=== PATIENT | male | born 1955 | race Caucasian/White ===

== ENCOUNTER 2018-07-14 05:20 | Inpatient (IN) ==
--- NOTE | 2018-07-14 05:35 | Emergency Department Note ---
Disposition Clinical Impression: Acute retention of urine, Febrile illness, acute, SIRS (systemic inflammatory response syndrome) Disposition: Admitted As Inpatient Condition: Fair Referrals: Triston Montero MD [Primary Care Provider] - Horace Romero MD [Partnered Physician] - () Forms: ED Satisfaction Letter, Work/School Release Male Urogenital HPI - General Chief complaint: ED Urogenital-Male Stated complaint: UNABLE TO URINATE Time Seen by Provider: 07/14/18 05:21 Source: patient, EMS Mode of arrival: EMS Limitations: no limitations Nursing Notes Reviewed: Yes Vital Signs Reviewed: Yes - History of Present Illness HPI Narrative: Patient presents by EMS stating that he "cannot urinate". This had onset about 10 PM he states he has been up all night trying but every 20 minutes to urinate without success. He has a constant urge to urinate as well as increased pain and pressure in the suprapubic region. Denies any other abdominal pain. Denies any episodes like this in the past. He has not had history of prostate trouble or flank pain. He has had some nausea and vomited just prior to arrival that he thinks is from the pain and pressure. He has had a feeling of fevers and chills with no diaphoresis. He has not checked his temperature. He denies any alteration in bowel function and denies diarrhea, constipation, bloody or black stools. Denies cough, chest pain or shortness of breath. He denies a recent change of medications or use of decongestants or other anticholinergic medication. Pt Subjective Complaint: urinary retention Onset (ago): hour(s) (7) Duration: constant, gradually worsening Radiation: abdomen (Suprapubic) Severity: moderate Quality: aching, other (Pressure and fullness) Improves with: none Worsens with: none Reports: urinary retention, fever (Subjective), nausea/vomiting. Denies: discharge, swelling, mass, rash, hematuria, dysuria, incontinence - Related Data Home Medications Medication Instructions Recorded Confirmed Atorvastatin [Lipitor] 20 mg PO HS 11/07/16 07/14/18 Butalbital/Aspirin/Caffeine 1 - 2 tab PO DAILY PRN 11/07/16 07/14/18 [Fiorinal 50-325-40 mg Capsule] Naproxen [Naprosyn] 500 mg PO BID PRN 11/07/16 07/14/18 Allergies Allergy/AdvReac Type Severity Reaction Status Date / Time No Known Allergies Allergy Verified 07/14/18 05:23 All systems ED: reviewed and negative except as stated. Past Medical History - Past Medical History Attestation: Yes The following information was validated with the patient. Source: patient, old records reviewed, nursing notes reviewed Medical history: Reports: hyperlipidemia, other (Headaches) Surgical history: Reports: no surgical history Psychiatric history: Reports: anxiety - Social History Smoking Status: Never smoker Alcohol use: Reports: none Drug use: Reports: none Physical Exam - General Limitations: no limitations General appearance: alert, anxious - Head Head exam: normal inspection - Eye Eye exam: Present: normal appearance, PERRL, EOMI. Absent: conjunctival injection - ENT ENT exam: normal exam, normal oropharynx, mucous membranes moist, normal external ear exam - Neck Neck exam: Present: normal inspection, full ROM, trachea midline - Chest Chest inspection: Present: normal inspection, symmetric chest wall rise. Absent: tenderness - Respiratory Respiratory exam: Present: normal lung sounds bilaterally. Absent: respiratory distress, wheezes, prolonged expiratory phase - Cardiovascular Cardiovascular exam: Present: regular rate, normal rhythm, tachycardia, normal heart sounds - Abdominal Exam Abdominal Exam: Present: soft, normal bowel sounds. Absent: distention, guarding, rebound, rigidity, tenderness at McBurney's Point Abdominal Tenderness: Present: suprapubic, moderate - Extremities Exam Extremities exam: Present: normal inspection, full ROM, normal capillary refill. Absent: tenderness, pedal edema - Expanded Lower Extremity Exam Neurovascular/Tendon exam: Present: normal capillary refill. Absent: pulse deficit, motor deficit, sensory deficit Gait: observed and normal - Back Exam Back exam: Present: normal inspection. Absent: CVA tenderness (R), CVA tenderness (L) - Neurological Exam Neurological exam: Present: alert, oriented X3, normal gait - Psychiatric Psychiatric exam: Present: normal affect, anxious - Skin Skin exam: Present: warm, dry, intact, normal color. Absent: diaphoresis, pallor Course Course Narrative: 0547: The patient's bladder scan indicated greater than 900 mL of urine and a Toro catheter is been placed. This is draining clear yellow urine. The nurses rechecked his temperature and has a temporal of 104. He has started having nausea and vomiting again. I have ordered blood work, cultures and a chest x- ray in addition to IV fluids and Zofran. 0633: Lab has arrived to draw this patient's blood work. 0710: The patient's presentation and evaluation have been discussed with Dr. Case. Patient continues with a tachycardia and a current rate of 112. Blood pressure is 145/85, oxygen saturation 92% and a respiratory rate of 18. States he started to feel improved and he has less nausea. Lactic acid is negative. His white count is not severely elevated. His fever and vomiting I suspect more of a viral syndrome but I do not have an explanation for his acute urinary retention. I do not see evidence for urinary tract infective process. He has received a dose of Rocephin and has continued to receive IV fluids. I believe he will benefit from continued hydration and observation. Verbal orders have been obtained for his observation period Vital Signs Temperature 99.3 F 07/14/18 05:23 Pulse Rate 126 07/14/18 05:23 Respiratory Rate 20 07/14/18 05:23 Blood Pressure 140/76 07/14/18 05:23 O2 Sat by Pulse Oximetry 96 07/14/18 05:23 Temperature 102.6 F H 07/14/18 06:37 Pulse Rate 115 07/14/18 06:37 Respiratory Rate 24 07/14/18 06:37 Blood Pressure 130/81 07/14/18 06:25 O2 Sat by Pulse Oximetry 92 07/14/18 06:37 Oxygen Delivery Oxygen Delivery Room Air Urogenital-Male - Differential Diagnosis Likely: urinary tract infection, prostatitis, acute urinary retention - Medical Records Medical records reviewed: Yes I reviewed the patient's medical records. - Lab Data Lab results reviewed: Yes I reviewed the patient's lab results. Result diagrams: 07/14/18 06:25 07/14/18 06:25 Lab Results 07/14/18 07/14/18 07/14/18 Range/Units 05:40 06:25 06:25 WBC 6.8 (4.3-11.1) K/mcL RBC 4.07 L (4.19-5.50) M/mcL Hgb 13.4 (12.9-16.9) g/dL Hct 38.4 (37.5-50.1) % MCV 94.3 (83.0-100.0) fL MCH 32.9 (28.0-33.3) pg MCHC 34.9 (31.6-35.5) g/dL RDW 12.5 (11.5-14.5) % Plt Count 208 (140-400) K/mcL MPV 8.8 L (9.4-12.4) fL Immature Gran % 0.3 (0-4) % Seg Neutrophils % 95.2 % Lymphocytes % 3.7 % Monocytes % 0.6 % Eosinophils % 0.1 % Basophils % 0.1 % Neutrophils # 6.5 (1.6-8.9) K/mcL Lymphocytes # 0.3 L (0.6-4.6) K/mcL Monocytes # 0.0 (0.0-1.3) K/mcL Eosinophils # 0.0 (0.0-0.6) K/mcL Basophils # 0.0 (0.0-0.2) K/mcL Sodium 138 (136-145) mEq/L Potassium 3.3 L (3.5-5.1) mEq/L Chloride 104 (98-107) mEq/L Carbon Dioxide 25 (23-29) mEq/L BUN 15 (8-23) mg/dL Creatinine 0.78 (0.70-1.30) mg/dL Est GFR ( Amer) > 60 (> 60) Est GFR (Non-Af Amer) > 60 (> 60) BUN/Creatinine Ratio 19 (6-26) Glucose 128 H (70-105) mg/dL Calculated Osmolality 288 (280-300) Lactic Acid (0.5-2.2) mmol/L Calcium 8.6 (8.6-10.3) mg/dL Total Bilirubin 0.7 (0.3-1.0) mg/dL Direct Bilirubin 0.1 (0.0-0.2) mg/dL Indirect Bilirubin 0.6 (0.0-1.2) mg/dL AST 15 (13-39) Units/L ALT 18 (7-52) Units/L Alkaline Phosphatase 55 (34-104) Units/L Serum Total Protein 6.0 L (6.4-8.9) g/dL Albumin 3.6 (3.5-5.7) g/dL Globulin 2.4 (2.4-3.5) g/dL Albumin/Globulin Ratio 1.5 (1.1-2.2) Urine Color Light Yellow (Yellow) Urine Clarity Slightly Cloudy A (Clear) Urine pH 5.5 (5.0-8.0) pH Units Ur Specific [place] 1.020 (1.010-1.025) Urine Protein Negative (Neg-Trace) mg/dL Urine Glucose (UA) Normal (Normal) mg/dL Urine Ketones Negative (Negative) mg/dL Urine Blood Trace-intact H (Negative) Urine Nitrite Negative (Negative) Urine Bilirubin Negative (Negative) Urine Urobilinogen Normal (Normal) mg/dL Ur Leukocyte Esterase Negative (Negative) Urine Microscopic RBC 0-3 (0-3) per hpf Urine Microscopic WBC 0-3 (0-3) per hpf Ur Squamous Epith Cells Few (None-Few) per lpf Ur Transition Epith Cell Few (None-Few) per hpf Urine Bacteria Moderate H (None-Few) per hpf Ur Culture Indicated? NO (NO) 07/14/18 Range/Units 06:35 WBC (4.3-11.1) K/mcL RBC (4.19-5.50) M/mcL Hgb (12.9-16.9) g/dL Hct (37.5-50.1) % MCV (83.0-100.0) fL MCH (28.0-33.3) pg MCHC (31.6-35.5) g/dL RDW (11.5-14.5) % Plt Count (140-400) K/mcL MPV (9.4-12.4) fL Immature Gran % (0-4) % Seg Neutrophils % % Lymphocytes % % Monocytes % % Eosinophils % % Basophils % % Neutrophils # (1.6-8.9) K/mcL Lymphocytes # (0.6-4.6) K/mcL Monocytes # (0.0-1.3) K/mcL Eosinophils # (0.0-0.6) K/mcL Basophils # (0.0-0.2) K/mcL Sodium (136-145) mEq/L Potassium (3.5-5.1) mEq/L Chloride (98-107) mEq/L Carbon Dioxide (23-29) mEq/L BUN (8-23) mg/dL Creatinine (0.70-1.30) mg/dL Est GFR ( Amer) (> 60) Est GFR (Non-Af Amer) (> 60) BUN/Creatinine Ratio (6-26) Glucose (70-105) mg/dL Calculated Osmolality (280-300) Lactic Acid 1.3 (0.5-2.2) mmol/L Calcium (8.6-10.3) mg/dL Total Bilirubin (0.3-1.0) mg/dL Direct Bilirubin (0.0-0.2) mg/dL Indirect Bilirubin (0.0-1.2) mg/dL AST (13-39) Units/L ALT (7-52) Units/L Alkaline Phosphatase (34-104) Units/L Serum Total Protein (6.4-8.9) g/dL Albumin (3.5-5.7) g/dL Globulin (2.4-3.5) g/dL Albumin/Globulin Ratio (1.1-2.2) Urine Color (Yellow) Urine Clarity (Clear) Urine pH (5.0-8.0) pH Units Ur Specific [place] (1.010-1.025) Urine Protein (Neg-Trace) mg/dL Urine Glucose (UA) (Normal) mg/dL Urine Ketones (Negative) mg/dL Urine Blood (Negative) Urine Nitrite (Negative) Urine Bilirubin (Negative) Urine Urobilinogen (Normal) mg/dL Ur Leukocyte Esterase (Negative) Urine Microscopic RBC (0-3) per hpf Urine Microscopic WBC (0-3) per hpf Ur Squamous Epith Cells (None-Few) per lpf Ur Transition Epith Cell (None-Few) per hpf Urine Bacteria (None-Few) per hpf Ur Culture Indicated? (NO) - Radiology Data Radiology results reviewed: Yes I reviewed the patient's radiology results. Single view chest x-ray is performed. This does not demonstrate evidence for infiltrate, effusion, pneumothorax, foreign body or heart failure. The cardiac silhouette is normal. I do not see abnormality to the osseous structures of the chest. This is on my interpretation. Impressions Chest X-Ray 07/14/18 05:47 IMPRESSION: Negative portable chest. D/ / Scotty Fletcher MD / Scotty Fletcher MD Interpreting Provider: Scotty Fletcher MD
[2018-07-14] MEDS ORDERED: Ondansetron ODT 4 MG TAB.RAPDIS SL ONE (05:45)
[2018-07-14] MEDS ORDERED: 0.9 % Sodium Chloride 1,000 ML IVC ONE ×2 (05:47→07:01)
[2018-07-14] MEDS ORDERED: cefTRIAXone 2,000 MG in 0.9 % Sodium Chloride Mini Bag 100 ML IVPB ONE (05:51)
[2018-07-14 05:57] LABS: Bilirubin,Urine Negative (Negative); Blood,Urine Trace-intact (Negative); Clarity,Urine Slightly Cloudy (Clear); Glucose,Urine (UA) Normal (Normal); Ketones,Urine Negative (Negative); Leukocyte Esterase,Urine Negative (Negative); Nitrite,Urine Negative (Negative); PH,Urine 5.5 pH Units (5.0-8.0); Protein,Urine Negative (Neg-Trace); Urobilinogen,Urine Normal (Normal)
[2018-07-14 05:58] LABS: Color,Urine Light Yellow (Yellow)
[2018-07-14 06:06] LABS: Bacteria,Urine Moderate per hpf (None-Few); RBC,Urine 0-3 per hpf (0-3); Squamous Epithelial Cell,Urine Few per lpf (None-Few); WBC,Urine 0-3 per hpf (0-3)
[2018-07-14 06:09] LABS: Transitional Epi Cells,Urine Few per hpf (None-Few)
[2018-07-14 06:43] LABS: Basophils % 0.1 %; Eosinophils % 0.1 %; Hematocrit 38.4 % (37.5-50.1); Hemoglobin 13.4 g/dL (12.9-16.9); Immature Granulocytes % 0.3 % (0-4); Lymphocytes # 0.3 K/mcL (0.6-4.6); Lymphocytes % 3.7 %; Mean Corpuscular HGB Conc 34.9 g/dL (31.6-35.5); Mean Corpuscular Hemoglobin 32.9 pg (28.0-33.3); Mean Corpuscular Volume 94.3 fL (83.0-100.0); Mean Platelet Volume 8.8 fL (9.4-12.4); Monocytes % 0.6 %; Neutrophils # 6.5 K/mcL (1.6-8.9); Platelet Count 208 K/mcL (140-400); Red Blood Count 4.07 M/mcL (4.19-5.50); Red Cell Distribution Width 12.5 % (11.5-14.5); Segmented Neutrophils % 95.2 %
[2018-07-14 07:00] LABS: Alanine Aminotransferase 18 Units/L (7-52); Albumin 3.6 g/dL (3.5-5.7); Albumin/Globulin Ratio 1.5 (1.1-2.2); Alkaline Phosphatase 55 Units/L (34-104); Aspartate Amino Transferase 15 Units/L (13-39); BUN/Creatinine Ratio 19 (6-26); Bilirubin,Direct 0.1 mg/dL (0.0-0.2); Bilirubin,Indirect 0.6 mg/dL (0.0-1.2); Bilirubin,Total 0.7 mg/dL (0.3-1.0); Blood Urea Nitrogen 15 mg/dL (8-23); Calcium 8.6 mg/dL (8.6-10.3); Carbon Dioxide 25 mEq/L (23-29); Chloride 104 mEq/L (98-107); Globulin 2.4 g/dL (2.4-3.5); Glucose 128 mg/dL (70-105); Osmolality,Calculated 288 (280-300); Potassium 3.3 mEq/L (3.5-5.1); Sodium 138 mEq/L (136-145); eGFR For Non-African Americans > 60 (> 60)
[2018-07-14] MEDS ORDERED: 0.9 % Sodium Chloride 1,000 ML IVC SCH ×2 (07:15→07:51)
[2018-07-14] MEDS ORDERED: Ondansetron 4 MG/2 ML VIAL IVP PRN (07:51)
[2018-07-14] MEDS ORDERED: Naloxone 0.4 MG/ML INJ IVP PRN (07:51)
[2018-07-14] MEDS ORDERED: Acetaminophen 325 MG TABLET PO PRN (07:51)
--- NOTE | 2018-07-14 12:47 | Internal Med History&Physical ---
Date of Encounter: 07/14/18 Time of Encounter: 12:15 Assessment and Plan (1) Acute retention of urine Current visit: Yes Status: Acute Toro catheter has been inserted. Empiric antibiotics have been ordered for infectious signs and symptoms likely due to UTI and/or acute prostatitis. (2) Weight loss Current visit: Yes Status: Acute Check TSH in a.m. . Will proceed with chest, abdomen, and pelvis CT if TSH normal. (3) Hypokalemia Current visit: Yes Status: Acute Suspect secondary to vomiting. Give supplemental potassium and recheck labs in a.m. (4) Hyperglycemia Current visit: Yes Status: Acute Glucose in emergency room was 128. Check hemoglobin A1c in a.m. Internal Medicine - H&P: HPI Chief complaint: Urinary retention Admitted From: Emergency Dept Plans for Post Hospital Care: Home History of present illness: Mr. Rodriguez is a 63 year old male who came to emergency room stating he had been unable to void spontaneously onset approximately 10 PM the previous evening. He felt increasingly distended in his lower abdominal area. He also felt he had a fever and states he had a single episode of vomiting. He came to emergency room and was evaluated and found to have fever 103 shortly after arrival. He reports 2 more episodes of vomiting in ER. He was given IV Rocephin and a Toro catheter was inserted with over 900 mL urine obtained. He was admitted to [facility] floor for ongoing care needs. He denies previous similar episodes. He denies any change in urinary frequency over the preceding days. He denies any unusual medication ingestions. He denies previous disorders of kidney bladder or prostate. Past Med Surg Social Fam HX - Past Medical History Medical history: hyperlipidemia, other Psychiatric history: anxiety - Past Surgical History Surgical History: no surgical history - Social History Smoking Status: Never smoker Smokeless Tobacco Status: No Alcohol use: none Drug use: none Internal Medicine - H&P: Meds Atorvastatin [Lipitor] 20 mg PO HS 11/07/16 [History] Butalbital/Aspirin/Caffeine [Fiorinal 50-325-40 mg Capsule] 1 - 2 tab PO DAILY PRN 11/07/16 [History] Naproxen [Naprosyn] 500 mg PO BID PRN 11/07/16 [History] LORazepam [Ativan] 1 mg PO QDPC PRN 12/16/18 [History] Allergy/AdvReac Type Severity Reaction Status Date / Time No Known Allergies Allergy Verified 07/14/18 05:23 All Systems PM: A 10-system review of systems was performed and is negative for pertinent findings except as documented above in the HPI. Review of systems: Gen.: He states his weight has decreased approximately 10 pounds in the past 6 months, unintentionally Cardiovascular: He denies hypertension CA heart failure angina DVT or pulmonary embolus Respiratory: He smoked from age [age] up to 2 packs per day. He denies chronic lung disease and does not use home oxygen. GI: He denies disorders of his liver gallbladder or exocrine pancreas : As per history of present illness Endocrine: He has history of hyperlipidemia. He denies diabetes or thyroid disease. Hematology/oncology: He denies blood disorders cancers or anemia Psychiatric: He denies anxiety depression or other mental health issues [place] skeletal: He denies arthritis gout or other bone joint or muscle disorders. - Constitutional Vitals: Temp Pulse Resp BP Pulse Ox 98.4 F 104 20 116/72 92 07/14/18 09:00 07/14/18 09:00 07/14/18 09:00 07/14/18 09:00 07/14/18 09:00 Exam: Gen.: He is a well-developed lean male lying in bed who appears in no acute distress at present time HEENT: Head is atraumatic and normocephalic. Eyes: EOMI. There is no scleral icterus. Mouth: Mucosa is moist. Neck: Supple and nontender. There is no thyromegaly or adenopathy noted. Heart: Regular without murmurs gallops or ectopics Lungs: No wheezes or crackles are heard. Abdomen: Soft and nontender. No masses or guarding are noted. Extremities: There is no cyanosis edema or clubbing noted. Dorsalis pedis and posttibial pulses are trace to 1+ palpable bilaterally. Neurologic: Mental status: He is talkative and a good historian. Cranial nerves: Smile is symmetric. Forehead wrinkles bilaterally. Tongue protrudes midline. EOMI. Motor: There is no pronator drift. Cerebellar: Finger to nose is intact bilaterally. Skin: Warm and dry Internal Med - H&P Results - Labs CBC & Chem 7: 07/14/18 06:25 07/14/18 06:25 Labs: Short CBC 12/16/18 Range/Units 06:25 WBC 6.8 (4.3-11.1) K/mcL Hgb 13.4 (12.9-16.9) g/dL Hct 38.4 (37.5-50.1) % Plt Count 208 (140-400) K/mcL Neutrophils # 6.5 (1.6-8.9) K/mcL BMP 07/14/18 06:25 Sodium 138 Potassium 3.3 L Chloride 104 Carbon Dioxide 25 BUN 15 Creatinine 0.78 Glucose 128 H Calcium 8.6 Liver Function 07/14/18 Range/Units 06:25 Total Bilirubin 0.7 (0.3-1.0) mg/dL Direct Bilirubin 0.1 (0.0-0.2) mg/dL AST 15 (13-39) Units/L ALT 18 (7-52) Units/L Alkaline Phosphatase 55 (34-104) Units/L Albumin 3.6 (3.5-5.7) g/dL Urine 07/14/18 Range/Units 05:40 Urine Color Light Yellow (Yellow) Urine Clarity Slightly Cloudy A (Clear) Urine pH 5.5 (5.0-8.0) pH Units Ur Specific [place] 1.020 (1.010-1.025) Urine Protein Negative (Neg-Trace) mg/dL Urine Glucose (UA) Normal (Normal) mg/dL - Impressions ITS Impressions Chest X-Ray 07/14/18 05:47 IMPRESSION: Negative portable chest. D/ / Scotty Fletcher MD / Scotty Fletcher MD Interpreting Provider: Scotty Fletcher MD
[2018-07-14] MEDS: Levofloxacin 750 MG/150 ML 750 MG/150 ML BAG IVPB SCH (13:46)
[2018-07-14] MEDS: 0.9 % Sodium Chloride w KCl 20 MEQ/1,000 ML MLS IVC SCH (13:49)
[2018-07-14] MEDS ORDERED: Ibuprofen 600 MG TABLET PO PRN (13:53)
[2018-07-14] MEDS ORDERED: Mag Hydrox/Al Hydrox/Simeth 30 ML UDC PO PRN (16:06)
[2018-07-14] MEDS: Lactobacillus 1 EACH CAP.SPRINK PO SCH (20:59)
[2018-07-14 22:43] LABS: Enterococcus by PCR Not Detected (Not Detect); Staphylococcus aureus by PCR Not Detected (Not Detect); Streptococcus agalactiae(B)PCR Not Detected (Not Detect); Streptococcus by PCR Not Detected (Not Detect); blaKPC Carbapenem-Resist Gene Not Detected (Not Detect); mecA Methicillin-Resist Gene Not Detected (Not Detect); vanA/B Vancomycin-Resist Genes Not Detected (Not Detect)
[2018-07-14 22:44] LABS: Acinetobacter baumannii by PCR Not Detected (Not Detect); Candida albicans by PCR Not Detected (Not Detect); Candida glabrata by PCR Not Detected (Not Detect); Candida krusei by PCR Not Detected (Not Detect); Candida parapsilosis by PCR Not Detected (Not Detect); Candida tropicalis by PCR Not Detected (Not Detect); Enterobacter cloacae Cmplx PCR Not Detected (Not Detect); Enterobacteriaceae by PCR Not Detected (Not Detect); Escherichia coli by PCR Not Detected (Not Detect); Klebsiella oxytoca by PCR Not Detected (Not Detect); Klebsiella pneumoniae by PCR Not Detected (Not Detect); Proteus by PCR Not Detected (Not Detect); Pseudomonas aeruginosa by PCR Not Detected (Not Detect); Serratia marcescens by PCR Not Detected (Not Detect); Staphylococcus by PCR Not Detected (Not Detect); Streptococcus pneumoniae PCR Not Detected (Not Detect); Streptococcus pyogenes (A) PCR Not Detected (Not Detect)
[2018-07-15] MEDS: 0.9 % Sodium Chloride w KCl 20 MEQ/1,000 ML MLS IVC SCH ×2 (01:28→16:53)
[2018-07-15] MEDS: cefTRIAXone 2,000 MG in Water for inj. (sterile) 20 ML 20 ML IVPB SCH (05:25)
[2018-07-15 05:56] LABS: Basophils % 0.2 %; Eosinophils % 0.3 %; Hematocrit 37.8 % (37.5-50.1); Hemoglobin 12.9 g/dL (12.9-16.9); Immature Granulocytes % 0.3 % (0-4); Lymphocytes # 0.6 K/mcL (0.6-4.6); Lymphocytes % 5.4 %; Mean Corpuscular HGB Conc 34.1 g/dL (31.6-35.5); Mean Corpuscular Hemoglobin 32.5 pg (28.0-33.3); Mean Corpuscular Volume 95.2 fL (83.0-100.0); Mean Platelet Volume 9.4 fL (9.4-12.4); Monocytes # 0.6 K/mcL (0.0-1.3); Monocytes % 5.4 %; Platelet Count 180 K/mcL (140-400); Red Blood Count 3.97 M/mcL (4.19-5.50); Red Cell Distribution Width 12.7 % (11.5-14.5); Segmented Neutrophils % 88.4 %
[2018-07-15 05:59] LABS: Neutrophils # 9.6 K/mcL (1.6-8.9)
[2018-07-15 06:11] LABS: BUN/Creatinine Ratio 15 (6-26); Blood Urea Nitrogen 11 mg/dL (8-23); Calcium 8.4 mg/dL (8.6-10.3); Carbon Dioxide 26 mEq/L (23-29); Chloride 107 mEq/L (98-107); Glucose 123 mg/dL (70-105); Osmolality,Calculated 289 (280-300); Sodium 139 mEq/L (136-145); eGFR For Non-African Americans > 60 (> 60)
[2018-07-15] MEDS: Lactobacillus 1 EACH CAP.SPRINK PO SCH ×2 (07:52→20:01)
[2018-07-15 09:27] LABS: Estimated Average Glucose 105 mg/dl; Hemoglobin A1C 5.3 %
--- NOTE | 2018-07-15 10:11 | Internal Med Progress Note ---
Date of Encounter: 07/15/18 Time of Encounter: 10:00 - Assessment and plan (1) Bacteremia Current Visit: Yes Status: Acute Assessment and plan: July 15. Blood cultures in emergency room show growth of gram-negative rods in 2/2. Continue empiric Levaquin and Rocephin with lactobacillus while awaiting final C/S report. (2) Acute retention of urine Current Visit: Yes Status: Acute Assessment and plan: July 15. Trial of Toro catheter discontinuation and see if spontaneous voiding occurs. (3) Weight loss Current Visit: Yes Status: Acute Assessment and plan: July 15. TSH normal. Order CT of chest abdomen and pelvis. (4) Hypokalemia Current Visit: Yes Status: Acute Assessment and plan: July 15. Resolved. Continue to monitor. (5) Hyperglycemia Current Visit: Yes Status: Acute Assessment and plan: July 15. Hemoglobin A1c normal at 5.3%. (6) Hypomagnesemia Current Visit: Yes Status: Acute Assessment and plan: July 15. Magnesium level returned low at 1.4 yesterday. Order magnesium oxide and recheck labs in a.m. - Subjective Interval history: July 15. He has no new complaints and feels better. - Constitutional Vitals: Temp Pulse Resp BP Pulse Ox 97.6 F 75 16 125/71 96 07/15/18 06:18 07/15/18 06:18 07/15/18 06:18 07/15/18 06:18 07/15/18 06:18 Exam: He is resting comfortably in bed and appears in no acute distress. His affect is bright and cheerful. I reviewed his medications and lab results Internal Medicine: Result - Labs CBC & Chem 7: 07/15/18 04:48 07/15/18 04:48 Labs: Short CBC 07/15/18 Range/Units 04:48 WBC 10.9 D (4.3-11.1) K/mcL Hgb 12.9 (12.9-16.9) g/dL Hct 37.8 (37.5-50.1) % Plt Count 180 (140-400) K/mcL Neutrophils # 9.6 H (1.6-8.9) K/mcL BMP 07/15/18 04:48 Sodium 139 Potassium 4.0 Chloride 107 Carbon Dioxide 26 BUN 11 Creatinine 0.72 Glucose 123 H Calcium 8.4 L Consult Discharge Plan - Plan Referrals: Triston Montero MD [Primary Care Provider] - 1 week
[2018-07-15] MEDS: Magnesium Oxide 400 MG TABLET PO SCH ×2 (13:17→20:01)
[2018-07-15] MEDS: Levofloxacin 750 MG/150 ML 750 MG/150 ML BAG IVPB SCH (13:27)
[2018-07-16] MEDS: cefTRIAXone 2,000 MG in Water for inj. (sterile) 20 ML 20 ML IVPB SCH (05:26)
[2018-07-16 05:56] LABS: Basophils % 0.5 %; Eosinophils # 0.1 K/mcL (0.0-0.6); Eosinophils % 1.7 %; Hemoglobin 13.5 g/dL (12.9-16.9); Immature Granulocytes % 0.3 % (0-4); Lymphocytes # 0.9 K/mcL (0.6-4.6); Lymphocytes % 14.4 %; Mean Corpuscular HGB Conc 33.8 g/dL (31.6-35.5); Mean Corpuscular Hemoglobin 32.5 pg (28.0-33.3); Mean Corpuscular Volume 96.2 fL (83.0-100.0); Mean Platelet Volume 9.3 fL (9.4-12.4); Monocytes # 0.7 K/mcL (0.0-1.3); Monocytes % 10.5 %; Neutrophils # 4.7 K/mcL (1.6-8.9); Platelet Count 193 K/mcL (140-400); Red Blood Count 4.16 M/mcL (4.19-5.50); Red Cell Distribution Width 12.7 % (11.5-14.5); Segmented Neutrophils % 72.6 %
[2018-07-16 06:06] LABS: BUN/Creatinine Ratio 11 (6-26); Blood Urea Nitrogen 10 mg/dL (8-23); Calcium 8.8 mg/dL (8.6-10.3); Carbon Dioxide 29 mEq/L (23-29); Chloride 104 mEq/L (98-107); Glucose 124 mg/dL (70-105); Osmolality,Calculated 286 (280-300); Potassium 3.8 mEq/L (3.5-5.1); Sodium 138 mEq/L (136-145); eGFR For Non-African Americans > 60 (> 60)
[2018-07-16 06:37] VITALS: BP 130/84
[2018-07-16] MEDS: Magnesium Oxide 400 MG TABLET PO SCH (07:28)
[2018-07-16] MEDS: Lactobacillus 1 EACH CAP.SPRINK PO SCH (07:29)
--- NOTE | 2018-07-16 09:46 | Discharge Summary ---
Orders not resulted at time of discharge: Pending orders 07/14/18 06:35 Culture,Blood [BC] Stat Date of Encounter: 07/16/18 Time of Encounter: 09:39 - Discharge Diagnosis (1) Bacteremia Priority: Primary Status: Acute (2) Acute retention of urine Priority: Secondary Status: Resolved (3) Weight loss Priority: Secondary Status: Acute (4) Hypokalemia Priority: Secondary Status: Resolved (5) Hyperglycemia Priority: Secondary Status: Acute (6) Hypomagnesemia Priority: Secondary Status: Resolved Hospital course: Mr. Rodriguez is a 63 year old male who came to emergency room stating he had been unable to void spontaneously onset approximately 10 PM the previous evening. He felt increasingly distended in his lower abdominal area. He also felt he had a fever and states he had a single episode of vomiting. He came to emergency room and was evaluated and found to have fever 103 shortly after arrival. He reports 2 more episodes of vomiting in ER. He was given IV Rocephin and a Toro catheter was inserted with over 900 mL urine obtained. He was admitted to [facility] for ongoing care needs. Initial orders were written by the emergency room physician. I saw him on July 14 and performed a history and physical. He was started empirically on Rocephin and Levaquin. Blood culture returned showing Klebsiella oxytoca with sensitivities to both antibiotics. He responded clinically to treatment and remained afebrile after the first hospital day. He will continue with oral Levaquin and probiotic for 5 additional days at discharge. Toro catheter was discontinued the day after admission and he had adequate spontaneous voiding without recurrence of retention. CT of chest, abdomen, and pelvis was done to further evaluate weight loss. There were 2 nodules in the right lung measuring 7 mm but no other worrisome pathology. Repeat chest CT in 3-6 months was recommended. His PCP can order this. Hypokalemia and hypomagnesemia resolved with oral replacement supplements. He had no further vomiting after admission. On July 16 he was stable for discharge home. He will follow with his PCP Dr. Montero within 1 week. He can return to work 07/24/2018. - Time Spent with Patient Total time spent providing and/or coordinating discharge services: - Discharge Medications Prescriptions: Lactobacillus [Culturelle] 1 each PO BID #10 cap.sprink levoFLOXacin [Levaquin] 750 mg PO DAILY #5 tablet Home Medications: Atorvastatin [Lipitor] 20 mg PO HS 11/07/16 [History] Butalbital/Aspirin/Caffeine [Fiorinal 50-325-40 mg Capsule] 1 - 2 tab PO DAILY PRN 11/07/16 [History] Naproxen [Naprosyn] 500 mg PO BID PRN 11/07/16 [History] LORazepam [Ativan] 1 mg PO QDPC PRN 07/14/18 [History] Lactobacillus [Culturelle] 1 each PO BID #10 cap.sprink 07/16/18 [Rx] levoFLOXacin [Levaquin] 750 mg PO DAILY #5 tablet 07/16/18 [Rx] Allergies/Adverse Reactions: Allergy/AdvReac Type Severity Reaction Status Date / Time No Known Allergies Allergy Verified 07/14/18 05:23 Date of admission: 07/14/18 14:53 Primary care physician: Triston Montero MD - Constitutional Vitals: Temp Pulse Resp BP Pulse Ox 98.8 F 65 15 130/84 96 07/16/18 06:29 07/16/18 06:29 07/16/18 06:29 07/16/18 06:29 07/16/18 06:29 - Patient Status Disposition: Home, Self-Care Condition: Fair - Discharge Instructions Follow Up With: Triston Montero MD [Primary Care Provider] - 1 week - Diet and Activity Activity: resume usual activities as tolerated Diet: advance to your usual diet
== END 2018-07-16 11:25 | disposition home or self-care (01) | DRG 872 ==
LOC: INPPIK 05:20 → EMEROOPIK 05:20 → INPPIK 08:06
PROVIDERS: ADMIT Internal Medicine; ATTEND Internal Medicine